=== PATIENT | female | born 1960 | race Caucasian/White ===

== ENCOUNTER 2018-09-30 06:58 | Inpatient (IN) ==
--- NOTE | 2018-09-23 15:47 | PAT Medication Instructions ---
Medication Instructions Date of Service September 23, 2018 Home Medications albuterol sulfate 1 - 2 puff INHALATION UD PRN anastrozole [Arimidex] 1 mg PO QAM aripiprazole [Abilify] 10 mg PO QAM ascorbic acid (vitamin C) [VitamiN 1 g PO BID aspirin [Aspir-81] 81 mg PO QAM atorvastatin [Lipitor] 80 mg PO HS calcium carbonate-vitamin D3 1 cap PO BID celecoxib [Celebrex] 200 mg PO BID dapagliflozin [Farxiga] 10 mg PO QAM exenatide microspheres [Bydureon] 2 mg SUBCUT WK [id number] 1 cap PO HS metformin 500 mg PO TID metoprolol tartrate 50 mg PO Q2D montelukast [Singulair] 10 mg PO HS multivitamin [Multiple Vitamins] 1 tab PO QAM omeprazole magnesium [Prilosec OTC] 20 mg PO QAM potassium chloride 10 meq PO QAM venlafaxine [Effexor XR] 75 mg PO TID Continue as directed exenatide microspheres [Bydureon] 2 mg SUBCUT WK metoprolol tartrate 50 mg PO Q2D ASK your surgeon for instructions celecoxib [Celebrex] 200 mg PO BID ASK your prescriber and surgeon aspirin [Aspir-81] 81 mg PO QAM anastrozole [Arimidex] 1 mg PO QAM STOP taking 2 weeks before surgery (or as soon as possible if surgery is within 2 weeks) [id number] 1 cap PO HS DO NOT take the morning of surgery ascorbic acid (vitamin C) [VitamiN 1 g PO BID calcium carbonate-vitamin D3 1 cap PO BID dapagliflozin [Farxiga] 10 mg PO QAM metformin 500 mg PO TID multivitamin [Multiple Vitamins] 1 tab PO QAM potassium chloride 10 meq PO QAM Take morning of surgery With a small sip of water, OTHERWISE NOTHING TO EAT OR DRINK AFTER MIDNIGHT: albuterol sulfate 1 - 2 puff INHALATION UD PRN (use if needed; please bring with you to hospital day of surgery if possible) aripiprazole [Abilify] 10 mg PO QAM omeprazole magnesium [Prilosec OTC] 20 mg PO QAM venlafaxine [Effexor XR] 75 mg PO TID Take evening before surgery albuterol sulfate 1 - 2 puff INHALATION UD PRN (if needed) ascorbic acid (vitamin C) [VitamiN 1 g PO BID atorvastatin [Lipitor] 80 mg PO HS calcium carbonate-vitamin D3 1 cap PO BID metformin 500 mg PO TID montelukast [Singulair] 10 mg PO HS venlafaxine [Effexor XR] 75 mg PO TID Other Notes If you have any questions please call us at [phone] or [phone] or [phone] or [phone]
--- NOTE | 2018-09-24 12:43 | Anesthesiology Consultation ---
Date of Service September 24, 2018 Assessment & Plan (1) Encounter for pre-operative examination: - Hx glidescope intubation: TATIANNA= 08/07/2009= Glidescope intubation; upon extubation "unable to ventilate, chin lift, +pressure given," O2 dropped, oral airway placed and sats returned to 90's ([facility]- records scanned in) - Check BSG AM DOS - LUE limb restriction s/p mastectomy - ASA instructions per surgeon/presciber Chart Review Chart Review: Acceptable Risk for Surgery and Patient seen in Pre Admission Testing Teaching & Discussion Pre-Anesthesia Teaching/Discussion Notes: Instructed NPO after midnight before surgery,except medications with 15 cc of water. Medication instructions provided according to the PAT guidelines. History Surgery Operation Date: 09/30/18 11:10 Proposed Procedures p Left Knee Open Exploration, Possible Repair Extensor Retinacular Tear, - Donnie Curry MD s Possible Achilles Allograft - Donnie Curry MD Height/Weight Height: 5 ft 1 in Weight: 97.2 kg Allergies Allergy/AdvReac Type Severity Reaction Status Date / Time gabapentin Allergy Severe Unresponsiv Verified 09/23/18 13:17 e clarithromycin AdvReac Unknown GI distress Verified 09/23/18 13:17 sitagliptin [From Januvia] AdvReac Diarrhea Verified 09/23/18 13:18 Chlorine AdvReac Unknown N/V Uncoded 09/23/18 13:17 Medications Home Medications Medication Instructions Recorded Confirmed Last Taken albuterol sulfate 1 - 2 puff INHALATION UD PRN 09/23/18 09/23/18 Unknown anastrozole [Arimidex] 1 mg PO QAM 09/23/18 09/23/18 09/23/18 aripiprazole [Abilify] 10 mg PO QAM 09/23/18 09/23/18 09/23/18 ascorbic acid (vitamin C) [Vitamin 1 g PO BID 09/23/18 09/23/18 09/23/18 C] aspirin [Aspir-81] 81 mg PO QAM 09/23/18 09/23/18 09/21/18 atorvastatin [Lipitor] 80 mg PO HS 09/23/18 09/23/18 09/22/18 calcium carbonate-vitamin D3 1 cap PO BID 09/23/18 09/23/18 Unknown [Calcium 600 + D(3)] celecoxib [Celebrex] 200 mg PO BID 09/23/18 09/23/18 09/21/18 dapagliflozin [Farxiga] 10 mg PO QAM 09/23/18 09/23/18 09/23/18 exenatide microspheres [Bydureon] 2 mg SUBCUT WK 09/23/18 09/23/18 09/18/18 [id number]-ast 1 cap PO HS 09/23/18 09/23/18 09/21/18 [krill oil] metformin 500 mg PO TID 09/23/18 09/23/18 09/23/18 metoprolol tartrate 50 mg PO Q2D 09/23/18 09/23/18 09/22/18 montelukast [Singulair] 10 mg PO HS 09/23/18 09/23/18 09/22/18 multivitamin [Multiple Vitamins] 1 tab PO QAM 09/23/18 09/23/18 09/23/18 omeprazole magnesium [Prilosec OTC] 20 mg PO QAM 09/23/18 09/23/18 09/23/18 potassium chloride 10 meq PO QAM 09/23/18 09/23/18 09/23/18 venlafaxine [Effexor XR] 75 mg PO TID 09/23/18 09/23/18 09/23/18 lisinopril 10 mg PO DAILY 09/24/18 09/24/18 Unknown lisinopril 10 mg PO DAILY 09/24/18 09/24/18 Unknown Past Medical History Medical History Acid reflux CONTROLLED Asthma STABLE Depression Diabetes mellitus NIDDM Fatty liver History of breast cancer S/P CHEMO (2000); ON ARMIDEX History of cervical cancer Hyperlipidemia Hypertension Morbid obesity Sleep apnea CPAP Past Family History Family History Mother Family history of cancer of gallbladder Father Family history of cancer Sister Family history of cervical cancer Brother Family history of lung cancer Family history of brain cancer Past Surgical History Surgical History History of bilateral cataract extraction History of section History of colonoscopy History of cone biopsy of cervix History of hysterectomy TOTAL History of left mastectomy History of right mastectomy History of total left knee replacement History of total right knee replacement Past Anesthesia History Difficult Airway (TATIANNA= 08/07/2009= Glidescope intubation; upon extubation "unable to ventilate, chin lift, +pressure given," O2 dropped, oral airway placed and sats returned to 90's ([facility]- records scanned in)) and No Family Hx of Anesthesia Complications History of PONV No Motion Sickness Screening History of Motion Sickness: No Social History Smoking Status: Never smoker Do You Dip or Chew Tobacco: No Hx Alcohol Use: No Hx Substance Use: No substance use type: does not use Exercise / Class Metabolic Activity III < 4 Walking/Shop/Light housework Review of Systems Patient denies chest pain, shortness of breath, cough, wheezing, palpitations. Physical Exam Vital Signs VITALS BP 110/73 P 78 TEMP 98.4 SP02 94%RA RESP 18 PHYSICAL Full neck and c-spine range of motion. Full TMJ range of motion. TMD 2.5 finger breaths (difficult to palpate) Mallampati Score 3 Dentition: intact, crown on molar Lungs: clear throughout to auscultation Cardiac: regular rate and rhythm, no murmurs noted Spine: normal Carotid arteries: negative bruit Extremities: no edema Thick neck Testing Electrocardiogram Date: 09/24/18 Findings: + NSR @ (72) Chest X-Ray Date: 09/24/18 Findings: + NAD Laboratory Results 09/24/18 13:00 09/24/18 13:00 Blood Type A Positive 09/24/18 13:00 Antibody Screen NEGATIVE 09/24/18 13:00 PT 10.5 Seconds (9.0-12.0) 09/24/18 13:00 INR 1.0 (0.9-1.1) 09/24/18 13:00 APTT 24.7 Seconds (21.0-31.0) 09/24/18 13:00 Hemoglobin A1c 7.5 % (4.5-5.6) H 09/24/18 13:00 Urine Color Yellow 09/24/18 13:00 Urine Appearance Clear (Clear) 09/24/18 13:00 Urine pH 5.5 (4.5-7.5) 09/24/18 13:00 Ur Specific [place] 1.026 (1.000-1.030) 09/24/18 13:00 Urine Protein Negative (Negative) 09/24/18 13:00 Urine Glucose (UA) 3+ (Negative) H 09/24/18 13:00 Urine Ketones Negative (Negative) 09/24/18 13:00 Urine Nitrite Negative (Negative) 09/24/18 13:00 Ur Leukocyte Esterase Negative (Negative) 09/24/18 13:00 09/24/18 13:00 Urine Culture - Final Urine,Clean Catch Three types of organisms present, all low counts probable skin timo. No further identifications or sensitivities to follow. Surgeon made aware of elevated hgba1c/WBC.*
--- NOTE | 2018-09-24 13:29 | XRay Report ---
XR chest Pre-admission PA/Lat CLINICAL HISTORY: Preoperative evaluation. COMPARISON STUDY: Chest radiograph September 18, 2014. FINDINGS: Surgical clips project over the left chest. There is no pneumothorax or pleural effusion. L chap[place]ito volumes are at the lower limits of normal. Cardiac size is normal. Mediastinal contours are anaid l. There is no evidence for pulmonary edema. IMPRESSION: No acute cardiopulmonary findings. Electronically signed by: Ty Coppola M.D. 09/24/2018 1:28 PM
[2018-09-24 13:36] LABS: Appearance Urine Clear (Clear); Basophils # (auto) 0.05 K/uL (0-0.2); Basophils % (auto) 0.4 %; Bilirubin Urine Negative (Negative); Blood Urine Negative (Negative); Color Urine Yellow; Eosinophils # (auto) 0.33 K/uL (0-0.5); Eosinophils % (auto) 2.7 %; Glucose Urine UA 3+ (Negative); Hematocrit (blood only) 41.4 % (37-47); Hemoglobin 13.8 g/dL (12.0-16.0); Immature Granulocytes # (auto) 0.06 K/uL (0.00-0.02); Immature Granulocytes % (auto) 0.5 %; Ketones Urine Negative (Negative); Leukocyte Esterase Urine Negative (Negative); Lymphocytes # (auto) 2.85 K/uL (1.2-3.4); Lymphocytes % (auto) 23.2 %; Mean Corpuscular Hgb Conc 33.3 g/dL (32-36); Monocytes # (auto) 1.11 K/uL (0.11-0.59); Neutrophils # (auto) 7.87 K/uL (1.4-6.5); Neutrophils % (auto) 64.2 %; Nitrite Urine Negative (Negative); Platelet Count 221 K/uL (130-400); Protein Urine Negative (Negative); RDW Coefficient of Variation 16.5 % (11.5-14.5); RDW Standard Deviation 50.9 fL (36.4-46.3); Red Blood Count 4.87 M/uL (4.2-5.4); Specific Gravity Urine 1.026 (1.000-1.030); Urobilinogen Urine Negative (Negative); White Blood Count 12.27 K/uL (4.8-10.8); pH Urine 5.5 (4.5-7.5)
[2018-09-24 13:48] LABS: BUN Creatinine Ratio 23.4 (10-20); Calcium 9.2 mg/dl (8.5-10.1); Creatinine Clr Calc Pharmacy 113.9 ml/min; Est GFR (African American) 117.5; Est GFR (Non-African American) 101.3; Potassium 4.2 mmol/L (3.5-5.1)
[2018-09-24 13:50] LABS: Partial Thromboplastin Ratio 0.9; Partial Thromboplastin Time 24.7 Seconds (21.0-31.0); Prothrombin Time 10.5 Seconds (9.0-12.0)
[2018-09-24 13:51] LABS: Estimated Average Glucose 169 mg/dl; Hemoglobin A1C 7.5 % (4.5-5.6)
--- NOTE | 2018-09-29 13:04 | History and Physical Report ---
DATE OF ADMISSION: 09/30/2018 CHIEF COMPLAINT: Patellar instability, left total knee arthroplasty. HISTORY OF PRESENT ILLNESS: The patient is a 58-year-old female who had a left total knee arthroplasty by another physician approximately 6 years ago. She states approximately 6 months ago, her kneecap felt like it was popping in and out. She was seen and evaluated in our office. She seems to have unstable patella. She is now scheduled for a left knee exploration, possible extensor mechanism/medial retinacular repair. PAST MEDICAL HISTORY: Hypertension, hypercholesterolemia, asthma, sleep apnea, depression, type 2 diabetes, osteoarthritis, acid reflux, obesity, breast cancer. PAST SURGICAL HISTORY: , bilateral knee replacement, breast mastectomy, hysterectomy. MEDICATIONS: Omeprazole 20 mg daily, nystatin 4 times daily in water, Ventolin inhaler 2 puffs q. 4-6 hours p.r.n., anastrozole 1 mg daily, ascorbic acid 1000 mg b.i.d., atorvastatin 80 mg daily, calcium carbonate plus vitamin D 3 times daily, Celebrex 200 mg 2 times daily p.r.n., Farxiga 10 mg daily, Bydureon injection every 7 days, Flonase nasal spray daily, lisinopril 10 mg daily, loperamide 2 mg as indicated, loratadine 10 mg daily p.r.n., metformin 500 mg 3 times daily, metoprolol succinate ER 50 mg one-half tablet daily, potassium chloride ER 10 mEq 2 tablets 2 times daily, Abilify 5 mg daily, montelukast sodium daily. ALLERGIES: BIAXIN, GABAPENTIN, CLARITHROMYCIN. SOCIAL HISTORY AND REVIEW OF SYSTEMS: Noncontributory. PHYSICAL EXAMINATION: GENERAL: Well-nourished, well-developed female who appears stated age. HEENT: Normocephalic, atraumatic, extraocular movements intact, oropharynx pink and moist. NECK: Supple without adenopathy. LUNGS: Clear to auscultation bilaterally. HEART: Regular rate and rhythm. ABDOMEN: Soft, nontender, nondistended, obese. EXTREMITIES: The upper extremities are within normal limits. Left knee has a well-healed midline incision from her previous arthroplasty. Her range of motion is from 0-120 degrees. X-RAYS: X-rays were reviewed. She has a well-aligned, well-fixed total knee in place. ASSESSMENT: Patellar instability, left total knee replacement. PLAN: Risks versus benefits were discussed, consent was obtained. We will proceed with left knee exploration, possible medial retinacular repair with allograft if indicated.
[~2018-09-30 06:58] MED LIST: ACETAMINOPHEN 500 MG TAB PO SCH; BUPIVACAINE 0.5 % 5 MG/1 ML PF 10ML VIAL ONE; CEFAZOLIN 2000MG 2,000 MG/15 ML SYR IV SCH; CeleBREX 200 MG CAP PO SCH; FAMOTIDINE 20 MG TAB PO SCH; LR 500ML BOLUS, THEN 15ML/HR IV SCH; ROPIVACAINE 0.5% 5 MG/ML 30 ML VIAL ONE; SODIUM CHLORIDE 0.9% 1,000 ML IV SCH; TRANEXAMIC ACID 1,000 MG **IV Intra-op IV SCH; TRANEXAMIC ACID 1,000 MG **IV Pre-op IV SCH; dexAMETHasone 4 MG TAB PO SCH
[2018-09-30] MEDS ORDERED: PROPOFOL IV EMULSION 10 MG/ML 20 ML VIAL IV ONE ×2 (09:20→11:01)
[2018-09-30] MEDS ORDERED: MIDAZOLAM HCL 1 MG/ML 2ML VIAL ONE ×2 (09:20→09:39)
[2018-09-30] MEDS ORDERED: ONDANSETRON INJ 2 MG/ML 2 ML VIAL ONE (09:20)
[2018-09-30] MEDS ORDERED: LIDOCAINE HCL 2% 2 ML VIAL/AMP(20MG/ML) INFIL ONE (09:20)
[2018-09-30] MEDS ORDERED: fentaNYL citrate 100 MCG/2 ML VIAL ONE (09:21)
--- NOTE | 2018-09-30 09:21 | History & Physical Bridge Note ---
Date of Service September 30, 2018 History & Physical Bridge Note I have examined the patient, reviewed the History & Physical and in the interval since the performance of the History & Physical I have noted the following changes of clinical significance: no changes noted
[2018-09-30] MEDS ORDERED: BACITRACIN INJ 50,000 UNIT VIAL ONE (09:23)
[2018-09-30] MEDS ORDERED: fentaNYL citrate 100 MCG/2 ML VIAL IV PRN (09:47)
[2018-09-30] MEDS ORDERED: ATROPINE SULFATE 0.1 MG/ML 10ML SYR IV PRN (09:47)
[2018-09-30] MEDS ORDERED: ePHEDrine sulfate 50 MG/ML AMP IV PRN (09:47)
[2018-09-30] MEDS ORDERED: ONDANSETRON INJ 2 MG/ML 2 ML VIAL IV PRN ×2 (09:47→13:37)
[2018-09-30] MEDS: BUPIVACAINE/EPINEPHRINE 0.5% MPF 1:200,000 30 ML VIAL ONE ×2 (11:28→14:28)
--- NOTE | 2018-09-30 11:44 | Operative Report ---
Post Operative Report Pre & Post Diagnosis Operation Date: 09/30/18 09:40 Pre-Op Diagnosis: Left Knee Extensor Retinacular Rupture Post-Op Diagnosis: Left Knee Extensor Retinacular Rupture Procedure Operation Date: 09/30/18 09:40 Actual Procedures p Left Knee Open Exploration, Repair Extensor Medial Retinacular Tear(Left) - Donnie Curry MD Surgeon Donnie Curry MD [employer] Estimated Blood Loss 10 Findings Consistent with Post-Op Diagnosis Specimens None Anesthesia Type Spinal MAC Complications none Disposition Accompanied Patient To Recovery: No Indications Patella instability Description of Procedure Patient's left leg was prepped and draped in usual sterile manner. The limb was exsanguinated with an Esmarch bandage and the tourniquet was inflated to 350 mils of mercury. Longitudinal incision was made the previous made incision was extended proximally. The blunt dissection was carried down until the VMO was identified. The thinned out scar between the VMO. Medial retinaculum and the patella and rectus tendon were identified. Using #5 FiberWire in a pants over vest fashion a double row reefing of the medial retinaculum was carried out. This stabilized the patella such that no further lateral subluxation was possible. The wound was irrigated and closed using 0 Dexon and is applied sterile dressing of Adaptic 4 x 4's sterile Webril and then medial and lateral plaster slab was applied. Patient taken recovery room in stable and good condition. Mr. Dyson was utilized all portions of the case including positioning prepping draping surgical assistance wound closure and dressing application. I attest to the content of the Intraoperative Record and any orders documented therein. Any exceptions are noted below.
--- NOTE | 2018-09-30 13:03 | Anesthesiology Progress Note ---
Date of Service September 30, 2018 Anesthesia Post Procedure Vital Signs Vital Signs: Temp Pulse Pulse Resp BP Pulse Ox 09/30/18 13:00 97.5 F L 85 22 125/74 95 09/30/18 12:50 79 19 126/73 91 09/30/18 12:40 79 20 129/76 93 09/30/18 12:30 84 19 135/73 94 09/30/18 12:20 83 21 117/67 93 09/30/18 12:10 83 21 119/67 91 09/30/18 12:02 97.2 F L 83 21 112/65 93 09/30/18 07:57 98.4 F 80 20 121/75 93 Pain Intensity Left Knee: Pain Intensity: 2 Right Knee: Pain Intensity: 3 Notes Mental Status: alert / awake / arousable and participated in evaluation Patient Amnestic to Procedure: Yes Nausea / Vomiting: adequately controlled Pain: adequately controlled Airway Patency, RR, SpO2: stable & adequate BP & HR: stable & adequate Hydration State: stable & adequate Neuraxial Anesthesia: was administered and sensory block is resolving Anesthetic Complications: no major complications apparent and Pt Satisfied with anesthetic care
[2018-09-30] MEDS ORDERED: ALBUTEROL HFA 8 GM INHALER INH PRN (13:37)
[2018-09-30] MEDS ORDERED: BISACODYL 10 MG SUPP PR PRN (13:37)
[2018-09-30] MEDS ORDERED: SODIUM CHLORIDE 0.9% 1000ML 1,000 ML IV SCH (13:37)
[2018-09-30] MEDS ORDERED: MAGNESIUM HYDROXIDE SUSP 30 ML UDC PO PRN (13:37)
[2018-09-30] MEDS ORDERED: NALOXONE HCL 0.4 MG/1 ML VIAL/CARP IV PRN (13:37)
[2018-09-30] MEDS ORDERED: HYDROmorphone INJ 0.5 MG/0.5 ML SYR IV PRN (13:37)
[2018-09-30] MEDS ORDERED: PHARMACY GLYCEMIC MGMT CONSULT PRN (14:17)
[2018-09-30] MEDS: MISSING PHYSICIAN SIGNATURE ON ORDER SCH ×2 (14:29→14:30)
[2018-09-30] MEDS ORDERED: CARBOHYDRATES FOR HYPOGLYCEMIA PO PRN (14:30)
[2018-09-30] MEDS ORDERED: INSULIN GLARGINE SOLOSTAR 100 UNITS/ML 3 ML PEN SC ONE (14:30)
[2018-09-30] MEDS ORDERED: DEXTROSE 50% 50 ML SYRINGE IV PRN (14:30)
[2018-09-30] MEDS ORDERED: GLUCOSE 40% GEL 15 GM TUBE PO PRN (14:30)
[2018-09-30] MEDS ORDERED: GLUCAGON FOR INJ 1 MG VIAL IM PRN (14:30)
[2018-09-30] MEDS ORDERED: GLUCOSE 10 TABS/TUBE PO PRN (14:30)
[2018-09-30] MEDS: INSULIN ASPART 100 UNITS/ML 3 ML PEN SC SCH ×4 (14:51→23:56)
[2018-09-30] MEDS: CEFAZOLIN 2000MG 2,000 MG/15 ML SYR IV SCH ×2 (15:37→23:54)
[2018-09-30] MEDS: VENLAFAXINE HCL XR 75 MG CAPXR PO SCH ×2 (15:37→21:21)
--- NOTE | 2018-09-30 15:47 | Pharmacy Report ---
Glycemic Control Consultation - Date of Service September 30, 2018 - Scope Scope: Glycemic Pharmacist consulted by Julian Dyson on 09/30/18 for glycemic control and to write orders per [facility] inpatient glycemic control protocol - Objective Weight: 97.522 kg Accuchecks BSG (last 24hrs): 09/30/18 09/30/18 09/30/18 07:51 12:10 13:32 POC Glucose 154 H 195 H 186 H HbA1c: Hemoglobin A1c 7.5 % (4.5-5.6) H 09/24/18 13:00 - Recent Pertinent Medications Outpatient Anti-diabetic Regimen: * Farxiga 10 mg daily; metformin 500 mg TID * Bydureon 2 mg SQ weekly Risk Factors for Insulin Resistance: * Steroids: dexamethasone 8 mg PO preoperative * Recent Surgery: POD 0 * Diet: T2DM - Assessment & Plan Assessment & Plan: ASSESSMENT: * Ms Lopez is a 58 y/o F admitted for knee surgery with a PMH of well controlled T2DM on oral medications. She received steroids pre-operatively. Since patient received steroids, will give almost full weight-based stress of 2 Lantus dose this afternoon. May require additional Lantus tomorrow morning but will be evaluated then. Do not order additional Lantus this evening as goal with steroids is to have majority of insulin coverage from Novolog. Overnight checks ordered. * For Novolog, will order weight-based stress of 3 Novolog secondary to steroids. * Pt is maintained on oral antidiabetic agents as an outpatient * Oral agents are not recommended for inpatient use d/t drug interactions, changing PO intake, and difficulty titrating for acute hyper/hypoglycemia. ADA recommends re-initiating outpatient oral agents 1-2 days prior to discharge if/when appropriate if they were held on admission. * Will hold oral agents for admission and utilize SQ basal bolus insulin regimen which is the recommended regimen for inpatient glycemic control. * Will initiate weight based insulin dosing for insulin angelo patient and titrate based on BSG trends. PLAN FOR INPATIENT GLYCEMIC CONTROL: * Holding outpatient oral diabetes medications * Basal insulin * Lantus 30 units SQ x 1 * Bolus insulin * NovoLog per scale ACHS or Q6hrs while NPO * Goal Range: Low 110 mg/dL - High 140 mg/dL * Correction Factor: 15 mg/dL/unit * Nutritional / Prandial insulin per carb ratio of 1 unit per 5 grams CHO consumed * Please note that the plan above was derived based on current level of insulin resistance and hospital stress. These recommendations are appropriate for inpatient admission only. Plan of care upon discharge will need to be reassessed to avoid potential outpatient hypo/hyperglycemia. Thank you.
[2018-09-30] MEDS: OXYCODONE HCL IR 5 MG TAB (IMMEDIATE RELEASE) PO PRN (17:08)
[2018-09-30] MEDS: ACETAMINOPHEN 500 MG TAB PO SCH (17:54)
--- NOTE | 2018-09-30 18:51 | Hospitalist Consultation ---
Date of Consultation September 30, 2018 Assessment & Plan (1) Traumatic medial retinacular tear of left knee: * POD #[address] Curry * PT/OT per orthopedics * Ambulate per orthopedics * Further management per orthopedics (2) Diabetes mellitus type 2, controlled: * Most recent hemoglobin A1c 6.7 * Patient uses metformin and diet to manage at home * NovoLog sliding scale while inpatient * Diabetic diet (3) Hypertension: * Continue home medications including lisinopril, metoprolol tartrate twice daily * Hemodynamically stable currently with a SBP of 138 (4) Asthma: * Triggered by cold weather * Continue montelukast, duo nebs * Oxygenation adequate on room air (5) Breast cancer: * Status post bilateral mastectomy with lymph node dissection to the bilateral axillary's. Limb restriction to the left upper extremity * Continue Arimidex -patient is to remain on this for 7 years * Follow outpatient with oncology (6) Hyperlipidemia: * Continue atorvastatin (7) Depression: * Continue home meds (8) DVT prophylaxis: * Aspirin 81 mg p.o. twice daily per orthopedics * Consider DUSTIN ritchie and SCDs Thank you for including us in the care of this patient. Supervising Physician Co-Signing Physician Notes PA Supervision Note: I personally saw and examined the patient. I verified all downing points and agree with JAVED Madrid with the following exceptions and/or additions: Pt doing well post-op, no CP or SOB. Vitals reviewed NAD, AAOx3 RRR no mgr CTAB no wcr Ext with large dressing and LINDA wrap in place left LE and not removed 58 yo female with h/o asthma, DMII, Br CA, HTN, depression, here for left knee med retinacular repair. DOing well post-op, glucose controlled, BPs acceptable Stable medically Hospitalist service will sign off History of Present Illness Reason for Consultation: Postoperative care Requesting Physician: Dr. Curry Attending Physician: Donnie Curry MD History of Present Illness This is a 58-year-old female that presents with left knee pain. She had prior history of knee replacement and presented to the outpatient office with complaints of an unstable left patella. She carries a past medical history including Hypertension, hypercholesterolemia, asthma, sleep apnea, depression, type 2 diabetes, osteoarthritis, acid reflux, obesity, and Breast cancer. Patient underwent left knee open exploration and repair of extensor medial retinacular tear. Estimated blood loss was 10 mL. Anesthesia was spinal MAC. There were no complications during the procedure. Patient states that she is generally been doing well at home her hemoglobin A1c for her diabetes has been in the 6% range and BSG is typically 140. She has not on long-term insulin but uses metformin. She also carries a history of hypertension and states that her typical systolic blood pressure is 120. She also reports asthma which is triggered by cold weather. She has had no illness recently and prior to surgery was doing well. She denies tobacco or ethanol abuse. Her weight has been fairly stable. Allergies Allergy/AdvReac Type Severity Reaction Status Date / Time gabapentin Allergy Severe Unresponsiv Verified 09/30/18 07:50 e clarithromycin AdvReac Unknown GI distress Verified 09/30/18 07:50 sitagliptin [From Januvia] AdvReac Diarrhea Verified 09/30/18 07:50 Chlorine AdvReac Unknown N/V Uncoded 09/30/18 07:50 Home Medications Home Medications Medication Instructions Recorded Confirmed Type Bydureon 2 mg SUBCUT WK 09/23/18 09/30/18 History Calcium 600 + D(3) 1 cap PO BID 09/23/18 09/30/18 History Farxiga 10 mg PO QAM 09/23/18 09/30/18 History albuterol sulfate 1 - 2 puff INHALATION UD PRN 09/23/18 09/30/18 History anastrozole [Arimidex] 1 mg PO QAM 09/23/18 09/30/18 History aripiprazole [Abilify] 10 mg PO QAM 09/23/18 09/30/18 History ascorbic acid (vitamin C) [Vitamin 1 g PO BID 09/23/18 09/30/18 History C] atorvastatin [Lipitor] 80 mg PO HS 09/23/18 09/30/18 History celecoxib [Celebrex] 200 mg PO BID 09/23/18 09/30/18 History ejygl-gb-2-vun-aqv-ebhliqw-ast 1 cap PO HS 09/23/18 09/30/18 History [krill oil] metformin 500 mg PO TID 09/23/18 09/30/18 History metoprolol tartrate 50 mg PO Q2D 09/23/18 09/30/18 History montelukast [Singulair] 10 mg PO HS 09/23/18 09/30/18 History multivitamin [Multiple Vitamins] 1 tab PO QAM 09/23/18 09/30/18 History potassium chloride 10 meq PO QAM 09/23/18 09/30/18 History venlafaxine [Effexor XR] 75 mg PO TID 09/23/18 09/30/18 History lisinopril 10 mg PO DAILY 09/24/18 09/30/18 History Lopressor 75 mg PO BID 09/30/18 09/30/18 History acetaminophen [Pain Reliever] 1,000 mg PO Q8 14 Days #84 tab 10/01/18 Rx aspirin [Ecotrin Low Strength] 81 mg PO BID 30 Days #60 tab 10/01/18 Rx cefadroxil 500 mg PO BID #14 cap 10/01/18 Rx oxycodone 5 - 10 mg PO Q6H PRN #30 tab 10/01/18 Rx Patient History Medical History Acid reflux CONTROLLED Asthma STABLE Depression Diabetes mellitus NIDDM Fatty liver History of breast cancer S/P CHEMO (2000); ON ARMIDEX History of cervical cancer Hyperlipidemia Hypertension Morbid obesity Sleep apnea CPAP Family History Mother Family history of cancer of gallbladder Father Family history of cancer Sister Family history of cervical cancer Brother Family history of lung cancer Family history of brain cancer Social History Preferred Language: Frisian Beliefs That Will Affect Care: None Current Living Situation: Significant Other Other Information That Helps Us Care for You: No Feels Safe at Home: Yes Smoking Status: Never smoker Hx Alcohol Use: No Hx Substance Use: No Review of Systems A total of 12 systems was reviewed and is negative other than as listed above in the HPI Physical Exam Vital Signs (Past 24 Hours): Last Vital Signs Temp 36.4 C L 09/30/18 15:09 Pulse 89 09/30/18 15:09 Resp 18 09/30/18 15:09 BP 138/91 09/30/18 15:09 Pulse Ox 92 09/30/18 15:09 Physical Exam: GENERAL : No acute distress EYES: No icterus, gaze conjugate NOSE: No evidence of epistaxis MOUTH: No lesions or candidiasis NECK: Supple LUNGS: Generally CTA B/L, no rales or rhonchi. Very faint posterior upper field wheezes which clear with cough HEART: Regular, rate controlled ABDOMEN: Soft, NT, ND, BS Present EXTREMITIES: No LE edema, pedal pulses intact NEURO: A&OX3 Results & Data Laboratory Results 09/24/18 09/24/18 09/24/18 13:00 13:00 13:00 WBC 12.27 H RBC 4.87 Hgb 13.8 Hct 41.4 MCV 85.0 MCH 28.3 MCHC 33.3 RDW Std Deviation 50.9 H RDW Coeff of Lex 16.5 H Plt Count 221 MPV 10.0 Immature Gran % (Auto) 0.5 Neut % (Auto) 64.2 Lymph % (Auto) 23.2 Bailey % (Auto) 9.0 Eos % (Auto) 2.7 Baso % (Auto) 0.4 Immature Gran # (Auto) 0.06 H Neut # (Auto) 7.87 H Lymph # (Auto) 2.85 Bailey # (Auto) 1.11 H Eos # (Auto) 0.33 Baso # (Auto) 0.05 PT 10.5 INR 1.0 APTT 24.7 PTT Ratio 0.9 Sodium Potassium Chloride Carbon Dioxide Anion Gap BUN Creatinine Est Cr Clr Drug Dosing Est GFR ( Amer) Est GFR (Non-Af Amer) BUN/Creatinine Ratio Glucose POC Glucose Estimat Average Glucose Hemoglobin A1c Calcium Albumin Urine Color Urine Appearance Urine pH Ur Specific Sabine Urine Protein Urine Glucose (UA) Urine Ketones Urine Blood Urine Nitrite Urine Bilirubin Urine Urobilinogen Ur Leukocyte Esterase Blood Type A Positive Antibody Screen NEGATIVE 09/24/18 09/24/18 09/24/18 13:00 13:00 13:00 WBC RBC Hgb Hct MCV MCH MCHC RDW Std Deviation RDW Coeff of Lex Plt Count MPV Immature Gran % (Auto) Neut % (Auto) Lymph % (Auto) Bailey % (Auto) Eos % (Auto) Baso % (Auto) Immature Gran # (Auto) Neut # (Auto) Lymph # (Auto) Bailey # (Auto) Eos # (Auto) Baso # (Auto) PT INR APTT PTT Ratio Sodium Potassium Chloride Carbon Dioxide Anion Gap BUN Creatinine Est Cr Clr Drug Dosing Est GFR ( Amer) Est GFR (Non-Af Amer) BUN/Creatinine Ratio Glucose POC Glucose Estimat Average Glucose 169 Hemoglobin A1c 7.5 H Calcium Albumin 3.5 Urine Color Yellow Urine Appearance Clear Urine pH 5.5 Ur Specific Sabine 1.026 Urine Protein Negative Urine Glucose (UA) 3+ H Urine Ketones Negative Urine Blood Negative Urine Nitrite Negative Urine Bilirubin Negative Urine Urobilinogen Negative Ur Leukocyte Esterase Negative Blood Type Antibody Screen 09/24/18 09/30/18 09/30/18 13:00 07:51 12:10 WBC RBC Hgb Hct MCV MCH MCHC RDW Std Deviation RDW Coeff of Lex Plt Count MPV Immature Gran % (Auto) Neut % (Auto) Lymph % (Auto) Bailey % (Auto) Eos % (Auto) Baso % (Auto) Immature Gran # (Auto) Neut # (Auto) Lymph # (Auto) Bailey # (Auto) Eos # (Auto) Baso # (Auto) PT INR APTT PTT Ratio Sodium 138 Potassium 4.2 Chloride 104 Carbon Dioxide 30 Anion Gap 4.0 BUN 13 Creatinine 0.56 L Est Cr Clr Drug Dosing 113.9 Est GFR ( Amer) 117.5 Est GFR (Non-Af Amer) 101.3 BUN/Creatinine Ratio 23.4 H Glucose 150 H POC Glucose 154 H 195 H Estimat Average Glucose Hemoglobin A1c Calcium 9.2 Albumin Urine Color Urine Appearance Urine pH Ur Specific Sabine Urine Protein Urine Glucose (UA) Urine Ketones Urine Blood Urine Nitrite Urine Bilirubin Urine Urobilinogen Ur Leukocyte Esterase Blood Type Antibody Screen 09/30/18 09/30/18 13:32 16:58 WBC RBC Hgb Hct MCV MCH MCHC RDW Std Deviation RDW Coeff of Lex Plt Count MPV Immature Gran % (Auto) Neut % (Auto) Lymph % (Auto) Bailey % (Auto) Eos % (Auto) Baso % (Auto) Immature Gran # (Auto) Neut # (Auto) Lymph # (Auto) Bailey # (Auto) Eos # (Auto) Baso # (Auto) PT INR APTT PTT Ratio Sodium Potassium Chloride Carbon Dioxide Anion Gap BUN Creatinine Est Cr Clr Drug Dosing Est GFR ( Amer) Est GFR (Non-Af Amer) BUN/Creatinine Ratio Glucose POC Glucose 186 H 219 H Estimat Average Glucose Hemoglobin A1c Calcium Albumin Urine Color Urine Appearance Urine pH Ur Specific Sabine Urine Protein Urine Glucose (UA) Urine Ketones Urine Blood Urine Nitrite Urine Bilirubin Urine Urobilinogen Ur Leukocyte Esterase Blood Type Antibody Screen Diagnostic Findings XR chest Pre-admission PA/Lat CLINICAL HISTORY: Preoperative evaluation. COMPARISON STUDY: Chest radiograph September 18, 2014. FINDINGS: Surgical clips project over the left chest. There is no pneumothorax or pleural effusion. Lung volumes are at the lower limits of normal. Cardiac size is normal. Mediastinal contours are normal. There is no evidence for pulmonary edema. IMPRESSION: No acute cardiopulmonary findings. Electronically signed by: Ty Coppola M.D. 09/24/2018 1:28 PM
[2018-09-30] MEDS ORDERED: ATORVASTATIN 40 MG TAB PO SCH (21:00)
[2018-09-30] MEDS ORDERED: SENNA 8.6 MG TAB PO SCH (21:00)
[2018-09-30] MEDS ORDERED: MONTELUKAST SODIUM 10 MG TABLET PO SCH (21:00)
[2018-09-30] MEDS: DOCUSATE SODIUM 100 MG CAP PO SCH (21:21)
[2018-09-30] MEDS: ASPIRIN 81 MG ECTAB PO SCH (21:22)
[2018-09-30] MEDS: METOPROLOL TARTRATE 25 MG TAB PO SCH (21:22)
[2018-09-30] MEDS: CeleBREX 200 MG CAP PO SCH (21:23)
[2018-10-01] MEDS: INSULIN ASPART 100 UNITS/ML 3 ML PEN SC SCH ×3 (04:04→12:48)
[2018-10-01] MEDS: ACETAMINOPHEN 500 MG TAB PO SCH (05:23)
[2018-10-01 06:19] LABS: Hematocrit (blood only) 35.3 % (37-47); Hemoglobin 11.7 g/dL (12.0-16.0); Mean Corpuscular Hgb Conc 33.1 g/dL (32-36); Mean Corpuscular Volume 84.2 fL (80-100); Mean Platelet Volume 9.9 fL (7.4-10.4); Platelet Count 227 K/uL (130-400); RDW Coefficient of Variation 16.3 % (11.5-14.5); RDW Standard Deviation 49.7 fL (36.4-46.3); Red Blood Count 4.19 M/uL (4.2-5.4); White Blood Count 14.61 K/uL (4.8-10.8)
[2018-10-01 06:26] LABS: Calcium 8.8 mg/dl (8.5-10.1); Est GFR (African American) 110.2; Est GFR (Non-African American) 95.1; Potassium 3.7 mmol/L (3.5-5.1)
[2018-10-01] MEDS ORDERED: METFORMIN HCL 500 MG TAB PO SCH (08:00)
--- NOTE | 2018-10-01 08:00 | Anesthesiology Progress Note ---
Date of Service October 01, 2018 Anesthesia Post Procedure Vital Signs Vital Signs: Temp Pulse Pulse Pulse Resp BP Pulse Ox 10/01/18 07:55 36.4 C L 73 18 144/79 H 94 10/01/18 03:21 36.5 C 88 14 137/75 95 09/30/18 23:16 36.4 C L 90 14 116/62 93 09/30/18 21:19 93 H 126/71 09/30/18 19:32 36.3 C L 91 H 16 148/75 H 95 09/30/18 15:09 36.4 C L 89 18 138/91 92 09/30/18 13:44 86 16 109/66 95 09/30/18 13:14 36.6 C 95 H 16 132/80 95 09/30/18 13:00 36.4 C L 85 22 125/74 95 09/30/18 12:50 79 19 126/73 91 09/30/18 12:40 79 20 129/76 93 09/30/18 12:30 84 19 135/73 94 09/30/18 12:20 83 21 117/67 93 09/30/18 12:10 83 21 119/67 91 09/30/18 12:02 36.2 C L 83 21 112/65 93 Pain Intensity Left Knee: Pain Intensity: 5 Right Knee: Pain Intensity: 3 Notes Mental Status: alert / awake / arousable and participated in evaluation Patient Amnestic to Procedure: Yes Nausea / Vomiting: adequately controlled Pain: adequately controlled Airway Patency, RR, SpO2: stable & adequate BP & HR: stable & adequate Hydration State: stable & adequate Neuraxial Anesthesia: was administered and sensory block resolved Anesthetic Complications: no major complications apparent and Pt Satisfied with anesthetic care
--- NOTE | 2018-10-01 08:26 | Orthopedic Progress Note ---
Date of Service October 01, 2018 Assessment & Plan (1) Traumatic medial retinacular tear of left knee: PT and OT protocols today. Weightbearing as tolerated with no range of motion of the left knee. DVT prophylaxis with aspirin, SCDs, DUSTIN hose. Pain management as written. DC planning-plan for discharge to home today. Subjective Postop day 1 status post repair extensor mechanism and medial retinacular tear Patient is currently sitting up in a chair with her leg in extension resting on a pillow. She has no complaints this morning. Pain is controlled. She states that she has been up and ambulating without difficulty. She denies shortness of breath, chest pain, lightheadedness. She is hoping to go home. Physical Exam Vital Signs (Past 24 Hours): Last Vital Signs Temp 36.4 C L 10/01/18 07:55 Pulse 73 10/01/18 07:55 Resp 18 10/01/18 07:55 BP 144/79 H 10/01/18 07:55 Pulse Ox 94 10/01/18 07:55 Physical Exam: Dressings/splint are intact. Calves are soft nontender. Neurovascular is intact. Toes are mobile. Results & Data Laboratory Results 10/01/18 10/01/18 10/01/18 Range/Units 08:00 05:21 05:21 WBC 14.61 H (4.8-10.8) K/uL RBC 4.19 L (4.2-5.4) M/uL Hgb 11.7 L (12.0-16.0) g/dL Hct 35.3 L (37-47) % MCV 84.2 (80-100) fL MCH 27.9 (25-34) pg MCHC 33.1 (32-36) g/dL RDW Std Deviation 49.7 H (36.4-46.3) fL RDW Coeff of Lex 16.3 H (11.5-14.5) % Plt Count 227 (130-400) K/uL MPV 9.9 (7.4-10.4) fL Sodium 138 (136-145) mmol/L Potassium 3.7 (3.5-5.1) mmol/L Chloride 105 (98-107) mmol/L Carbon Dioxide 28 (21-32) mmol/L Anion Gap 5.0 (3-11) BUN 17 (7-18) mg/dl Creatinine 0.68 (0.6-1.2) mg/dl Est Cr Clr Drug Dosing 94.0 ml/min Est GFR ( Amer) 110.2 Est GFR (Non-Af Amer) 95.1 BUN/Creatinine Ratio 25.0 H (10-20) Glucose 183 H (70-99) mg/dl POC Glucose 150 H (70-99) Calcium 8.8 (8.5-10.1) mg/dl 10/01/18 09/30/18 09/30/18 Range/Units 03:58 23:53 20:49 WBC (4.8-10.8) K/uL RBC (4.2-5.4) M/uL Hgb (12.0-16.0) g/dL Hct (37-47) % MCV (80-100) fL MCH (25-34) pg MCHC (32-36) g/dL RDW Std Deviation (36.4-46.3) fL RDW Coeff of Lex (11.5-14.5) % Plt Count (130-400) K/uL MPV (7.4-10.4) fL Sodium (136-145) mmol/L Potassium (3.5-5.1) mmol/L Chloride (98-107) mmol/L Carbon Dioxide (21-32) mmol/L Anion Gap (3-11) BUN (7-18) mg/dl Creatinine (0.6-1.2) mg/dl Est Cr Clr Drug Dosing ml/min Est GFR ( Amer) Est GFR (Non-Af Amer) BUN/Creatinine Ratio (10-20) Glucose (70-99) mg/dl POC Glucose 196 H 171 H 209 H (70-99) Calcium (8.5-10.1) mg/dl 09/30/18 09/30/18 09/30/18 Range/Units 16:58 13:32 12:10 WBC (4.8-10.8) K/uL RBC (4.2-5.4) M/uL Hgb (12.0-16.0) g/dL Hct (37-47) % MCV (80-100) fL MCH (25-34) pg MCHC (32-36) g/dL RDW Std Deviation (36.4-46.3) fL RDW Coeff of Lex (11.5-14.5) % Plt Count (130-400) K/uL MPV (7.4-10.4) fL Sodium (136-145) mmol/L Potassium (3.5-5.1) mmol/L Chloride (98-107) mmol/L Carbon Dioxide (21-32) mmol/L Anion Gap (3-11) BUN (7-18) mg/dl Creatinine (0.6-1.2) mg/dl Est Cr Clr Drug Dosing ml/min Est GFR ( Amer) Est GFR (Non-Af Amer) BUN/Creatinine Ratio (10-20) Glucose (70-99) mg/dl POC Glucose 219 H 186 H 195 H (70-99) Calcium (8.5-10.1) mg/dl
[2018-10-01] MEDS: ASPIRIN 81 MG ECTAB PO SCH (08:52)
[2018-10-01] MEDS: CeleBREX 200 MG CAP PO SCH (08:52)
[2018-10-01] MEDS: METOPROLOL TARTRATE 25 MG TAB PO SCH (08:54)
[2018-10-01] MEDS: DOCUSATE SODIUM 100 MG CAP PO SCH (08:54)
[2018-10-01] MEDS: VENLAFAXINE HCL XR 75 MG CAPXR PO SCH (08:54)
[2018-10-01] MEDS ORDERED: METOPROLOL TARTRATE 50 MG TAB PO SCH (09:00)
[2018-10-01] MEDS ORDERED: ARIPiprazole 10 MG TAB PO SCH (09:00)
[2018-10-01] MEDS ORDERED: LISINOPRIL 10 MG TAB PO SCH (09:00)
[2018-10-01] MEDS ORDERED: MULTIVITAMIN TAB PO SCH (09:00)
[2018-10-01] MEDS ORDERED: POTASSIUM CHLORIDE 10 MEQ TABCR PO SCH (09:00)
[2018-10-01] MEDS ORDERED: NON-FORMULARY MEDICATION (Dapagliflozin [Farxiga] 10 MG) PO SCH (09:00)
[2018-10-01] MEDS ORDERED: ANASTROZOLE 1 MG TAB PO SCH (09:00)
[2018-10-01] MEDS ORDERED: INSULIN GLARGINE SOLOSTAR 100 UNITS/ML 3 ML PEN SC ONE (09:30)
[2018-10-01] MEDS: OXYCODONE HCL IR 5 MG TAB (IMMEDIATE RELEASE) PO PRN (12:19)
--- NOTE | 2018-10-04 23:27 | Discharge Summary ---
DISCHARGE DIAGNOSIS: Left knee extensor retinacular rupture. SECONDARY DIAGNOSES: Hypertension, hypercholesterolemia, asthma, sleep apnea, depression, type 2 diabetes mellitus, osteoarthritis, gastroesophageal reflux disease, obesity, breast cancer in the past. CONSULTATIONS: Addy Madrid PA-C/Phylicia Rashid MD COMPLICATIONS: None. PROCEDURES: Left knee open exploration, repair of extensor medial retinacular tear, left, by Dr. Curry on 09/30/2018. BRIEF HISTORY: As dictated in the history and physical. HOSPITAL SUMMARY: The patient was admitted on the above-noted date and had the above-noted surgery performed, which she tolerated well. On her first postoperative day, she was sitting up in a chair at the bedside with her leg in extension resting on a pillow. She had no complaints. Pain was controlled. She has been up and ambulating without difficulty and denied shortness of breath, chest pain, or lightheadedness. She was hoping to go home that day. Vital signs were stable. She was afebrile. Dressings and splint were intact. Calves were soft and nontender. Neurovascularly intact. Toes were mobile. Hemoglobin was 11.7 and she was started on physical therapy protocol and continued on DVT prophylaxis and pain management. She progressed well with her PT and was remaining stable and it was felt she could be discharged to home on 10/01/2018. For further review, please see chart. LABORATORY AND X-RAY DATA: As per chart. DISCHARGE INSTRUCTIONS: The patient was discharged home in satisfactory condition on 10/01/2018. DIET: Diabetic. ACTIVITY: Weightbearing as tolerated in the left lower extremity with crutches or walker. Keep dressing and splint clean and dry. You may tighten the Fletcher wrap if you feel the splint is loosening. No range of motion of the left knee at this time. Please call the office if you are having any problems with the splint. Follow up with Dr. Curry or Nicolas Ariza PA-C, in 10-14 days. DISCHARGE MEDICATIONS: Acetaminophen 1000 mg p.o. q. 8 hours, aspirin 81 mg p.o. b.i.d., cefadroxil 500 mg p.o. b.i.d., oxycodone 5-10 mg p.o. q. 6 hours. Resume home meds as listed and stop taking previous aspirin dosage.
[2018-10-06] MEDS ORDERED: ROPIVACAINE 0.5% HCL/PF 150 MG, BUPIVACAINE 0.5% MPF 30 ML, EPINEPHrine 30MG/30ML (OR U... INFIL SCH (06:00)
== END 2018-10-01 13:11 | disposition home or self-care (01) | DRG 501 ==
LOC: ASU 06:58 → 3E 12:18